=== PATIENT | female | born 1975 | race American Indian/Alaskan Native ===

== ENCOUNTER 2017-07-20 01:14 | Emergency (ER) | payer MEDICAID ==
[2017-07-20 01:29] VITALS: O2SAT 96
[2017-07-20] MEDS ORDERED: Sodium Chloride 0.9% 500 ML IV ONE (02:00)
--- NOTE | 2017-07-20 02:26 | C.PDOC ---
History Of Present Illness 41 year old female presents to the ER with a complaint of chronic abdominal pain for the past year. Patient has been mostly seen at [facility] where she states she had numerous x-rays and CT done, she notes she was given zofran PO for vomiting and tylenol for pain in May with no relief bc she's unable to keep pills down. Patient reports she still has persistent vomiting and pain; she has not followed up with PMD due to insurance issues. Denies fever, diarrhea, or recent travel. Time Seen by Provider: 07/20/17 01:46 Chief Complaint (Nursing): Chest Pain History Per: Patient History/Exam Limitations: no limitations Current Symptoms Are (Timing): Still Present Associated Symptoms: denies: Nausea, Dyspnea, Diaphoresis, Syncope Modifying Factors: None Exacerbating Factors: None Alleviating Factors: None Recent travel outside of the [place]: No Past Medical History Reviewed: Historical Data, Nursing Documentation, Vital Signs Vital Signs: Last Vital Signs Temp 98.1 F 07/20/17 01:25 Pulse 93 H 07/20/17 01:25 Resp 20 07/20/17 01:25 BP 147/87 07/20/17 01:25 Pulse Ox 96 07/20/17 04:34 - Medical History PMH: Asthma, HTN Surgical History: Cholecystectomy (x2) Family History: States: Unknown Family Hx - Social History Hx Alcohol Use: Yes Hx Substance Use: No - Immunization History Hx Tetanus Toxoid Vaccination: No Hx Influenza Vaccination: Yes Hx Pneumococcal Vaccination: No Review Of Systems Constitutional: Negative for: Fever, Chills Gastrointestinal: Positive for: Vomiting, Abdominal Pain. Negative for: Diarrhea Physical Exam - Physical Exam Appears: Non-toxic, No Acute Distress Skin: Normal Color, Warm, Dry Head: Atraumatic, Normacephalic Eye(s): bilateral: Normal Inspection Oral Mucosa: Moist Chest: Symmetrical Cardiovascular: Rhythm Regular Respiratory: Normal Breath Sounds, No Rales, No Rhonchi, No Wheezing Gastrointestinal/Abdominal: Bowel Sounds (Active), Soft, Tenderness (Epigastric) , No Guarding, No Rebound, Other (Obese) Neurological/Psych: Oriented x3, Normal Speech ED Course And Treatment - Laboratory Results Result Diagrams: 07/20/17 02:29 07/20/17 02:29 O2 Sat by Pulse Oximetry: 96 (Room air) Pulse Ox Interpretation: Normal Progress Note: Blood work and urinalysis ordered. Toradol IV, zofran IV, pepcid , and IV fluids administered. Pt reports pain still 6/10 so viscous lidocaine mix with maalox ordered. Reevaluation Time: 04:59 Reassessment Condition: Improved (Pt feels much better, tolerating PO in the ED . Pt will follow up with PMD for GI referral) Disposition Counseled Patient/Family Regarding: Diagnosis, Need For Followup, Rx Given - Disposition Disposition: HOME/ ROUTINE Disposition Time: 02:23 Condition: STABLE Additional Instructions: take zofran ODT Follow up with PMD or in clinic Have [place] diet Return to ER if worse Prescriptions: Ondansetron ODT [Zofran ODT] 1 odt PO BID PRN #6 odt PRN Reason: Nausea/Vomiting Instructions: Abdominal Pain (ED) Forms: [facility] (Tajik) - Clinical Impression Clinical Impression: Abdominal pain - Scribe Statement The provider has reviewed the documentation as recorded by the Scribe Umair Anne All medical record entries made by the Scribe were at my direction and personally dictated by me. I have reviewed the chart and agree that the record accurately reflects my personal performance of the history, physical exam, medical decision making, and the department course for this patient. I have also personally directed, reviewed, and agree with the discharge instructions and disposition.
[2017-07-20] MEDS ORDERED: Sodium Chloride 0.9% 1,000 ML ONE (02:27)
[2017-07-20 02:38] LABS: BASO # 0.1 K/uL (0.0-0.2); BASO % 0.5 % (0.0-2.0); EOS # 0.1 K/uL (0.0-0.7); EOS % 1.1 % (0.0-4.0); HEMATOCRIT 36.8 % (34.0-47.0); LYMPH # 2.7 K/uL (1.0-4.3); LYMPH % 25.4 % (20.0-40.0); MEAN CELL VOLUME 89.9 fL (81.0-99.0); MEAN CORPUSCULAR HEMOGLOBIN 28.9 pg (27.0-31.0); MEAN CORPUSCULAR HGB CONC 32.1 g/dL (33.0-37.0); MEAN PLATELET VOLUME 7.3 fL (7.2-11.7); MONO # 0.8 K/uL (0.0-0.8); MONO % 7.6 % (0.0-10.0); NRBC % 0.1 % (0.0-2.0); RED CELL DISTRIBUTION WIDTH 15.4 % (11.5-14.5); WHITE BLOOD COUNT 10.8 K/uL (4.8-10.8)
[2017-07-20 02:48] LABS: BILIRUBIN,TOTAL 0.8 mg/dL (0.2-1.3); CALCIUM 8.3 mg/dl (8.6-10.4); GFR AFRICAN-AMERICAN > 60; GLUCOSE,RANDOM 93 mg/dL (65-105); TOTAL PROTEIN 7.4 g/dL (6.3-8.3)
[2017-07-20 02:52] LABS: ALKALINE PHOSPHATASE 58 U/L (38-126); ALT/SGPT 29 U/L (9-52); AST/SGOT 25 U/L (14-36); BLOOD UREA NITROGEN 6 mg/dL (7-17); CARBON DIOXIDE 21 mmol/L (22-30); CHLORIDE 101 mmol/L (98-107); POTASSIUM 3.5 mmol/L (3.6-5.2); SODIUM 134 mmol/L (132-148)
[2017-07-20 03:30] LABS: RBC URINE 7 /hpf (0-3); URINE BACTERIA RARE (<OCC); URINE BILIRUBIN NEGATIVE (NEGATIVE); URINE BLOOD NEGATIVE (NEGATIVE); URINE COLOR Yellow (YELLOW); URINE GLUCOSE (UA) NORMAL (Normal); URINE KETONE TRACE mg/dL (NEGATIVE); URINE LEUKOCYTE ESTERASE TRACE Leu/uL (Negative); URINE PROTEIN NEGATIVE (NEGATIVE); URINE UROBILINOGEN NORMAL mg/dL (0.2-1.0); WBC URINE 4 /hpf (0-5)
[2017-07-20] MEDS ORDERED: Alum-Mag Hydrox-Simethicone Susp (30 mL) ONE (04:03)
[2017-07-20] MEDS ORDERED: Aluminum Hydroxide/Magnesium Hydroxide Susp (30 mL) PO STA (04:14)
[2017-07-20 04:57] VITALS: BP 115/70; PULSE 74; RESP 18; TEMP 98.3
[2017-07-20] MEDS ORDERED: Aluminum Hydroxide/Magnesium Hydroxide Susp (30 mL) PO SCH (10:00)
--- NOTE | 2017-07-21 21:53 | CARD ---
APPROVED REPORT EKG Measurement Heart [id number] CT [id number] <Conclusion> Normal sinus rhythm Possible Left atrial enlargement Left ventricular hypertrophy Prolonged QT Abnormal ECG
== END 2017-07-20 05:15 | disposition home or self-care (01) ==
LOC: C.ER 01:14
DX: R10.13 Epigastric pain (principal)
CPT/HCPCS: 80053; 81001; 83690; 84703; 85025; 93005; 96361; 96374; 96375; 99285; J1885; J2405; J7040

== ENCOUNTER 2018-04-06 09:59 | Emergency (ER) | payer MEDICAID ==
[2018-04-06 10:07] VITALS: TEMP 98.5
[2018-04-06 10:11] VITALS: BMI 36.1
[2018-04-06] MEDS ORDERED: Lidocaine 5% Patch TD STA (10:28)
--- NOTE | 2018-04-06 10:29 | C.PDOC ---
History Of Present Illness 42-year-old female presents to the ED complaining of left buttock/hip pain radiating down the posterior thigh, since yesterday. Patient denies recent trauma or fall. States she was watching TV in bed, got up to use the bathroom, and noticed the pain while walking. She tried taking 800mg Motrin, applying Bengay, and placing the thigh in an JIM bandage, without improvement. Patient is able to move her left toes but states she cannot bend the knee or walk. Of note, patient reports a history of two slipped discs in her back. Otherwise she denies any numbness, tingling, fever, chills, dysuria, urinary frequency, incontinence of bowel or bladder. Time Seen by Provider: 04/06/18 10:18 Chief Complaint (Nursing): Lower Extremity Problem/Injury History Per: Patient History/Exam Limitations: no limitations Onset/Duration Of Symptoms: Days Current Symptoms Are (Timing): Still Present Past Medical History Reviewed: Historical Data, Nursing Documentation, Vital Signs Vital Signs: Last Vital Signs Temp 98.5 F 04/06/18 10:04 Pulse 68 04/06/18 12:10 Resp 16 04/06/18 12:10 BP 148/89 04/06/18 12:10 Pulse Ox 100 04/06/18 12:43 - Medical History PMH: Asthma, Back Problems (2 slipped discs), HTN Surgical History: Cholecystectomy (x2) Family History: States: Unknown Family Hx - Social History Hx Alcohol Use: Yes Hx Substance Use: No - Immunization History Hx Tetanus Toxoid Vaccination: No Hx Influenza Vaccination: Yes Hx Pneumococcal Vaccination: No Review Of Systems Except As Marked, All Systems Reviewed And Found Negative. Constitutional: Negative for: Fever, Chills Genitourinary: Negative for: Dysuria, Frequency, Incontinence Musculoskeletal: Positive for: Leg Pain (left buttock radiating down the left posterior thigh) Skin: Negative for: Rash Neurological: Negative for: Numbness, Other (tingling) Physical Exam - Physical Exam Appears: Non-toxic, In Acute Distress (mild painful distress) Skin: Warm, Dry, No Rash Head: Atraumatic, Normacephalic Eye(s): bilateral: Normal Inspection Oral Mucosa: Moist Neck: Normal ROM Chest: Symmetrical Cardiovascular: Rhythm Regular, No Murmur Respiratory: Normal Breath Sounds, No Rales, No Rhonchi, No Wheezing Gastrointestinal/Abdominal: Soft, No Tenderness, No Distention Back: No CVA Tenderness, No Vertebral Tenderness, No Paraspinal Tenderness Extremity: Bilateral: Atraumatic (with no swelling or skin changes), Hips Non- Tender, Normal Color And Temperature, Other (Limited ROM secondary to pain) Pulses: Left Dorsalis Pedis: Normal, Right Dorsalis Pedis: Normal Neurological/Psych: Oriented x3, Normal Speech, Normal Sensation Gait: Unable To Assess ED Course And Treatment O2 Sat by Pulse Oximetry: 100 (room air) Pulse Ox Interpretation: Normal - Other Rad X-Ray Left Hip/Pelvis X-Ray: Viewed By Me, Read By Radiologist Interpretation: FINDINGS: BONES: Normal. No fracture. JOINTS: Normal. SOFT TISSUES: Normal. OTHER FINDINGS: None. IMPRESSION: Normal left hip radiographs. Medical Decision Making Medical Decision Making: Impression: Left posterior hip and upper leg pain Initial Plan: --Valium 5 mg PO --Toradol 60 mg IM --Lidoderm patch x1 --Left Hip/Pelvis X-Ray --Reassessment and disposition Progress/Updates: X-ray is negative, as read by radiology. Copy of report provided. Counseled patient regarding findings and likely diagnosis. 11:25am On re-examination, patient is still complaining of pain. Ordered 8 mg IM morphine. 12:35pm On re-examination, patient is resting comfortably in no acute distress. Patient reports improvement of symptoms. Patient feels comfortable going home and will be discharged. Patient given follow up instructions and prescriptions to take home. Instructed to return to ER if symptoms worsen or new symptoms arise. Disposition Counseled Patient/Family Regarding: Diagnosis, Need For Followup, Rx Given - Disposition Referrals: [facility] [Outside] [facility] [Outside] [facility] [Outside] Disposition: HOME/ ROUTINE Disposition Time: 12:37 Condition: STABLE Additional Instructions: Apply heat to area for 15-20 minutes at a time 2-3 times per day Take Motrin for pain every 6-8 hours as needed, with food to not upset stomach Take Flexeril for muscle pain and spasm every 6-8 hours as needed, caution can cause drowsiness Take percocet for more severe pain, be aware this is narcotic medication and can cause drowsiness; do not drink alcohol Follow up with your primary medical doctor or clinic in 2-5 days for further evaluation Return to the emergency department at any time if symptoms persist or worsen. Prescriptions: Cyclobenzaprine [Cyclobenzaprine HCl] 10 mg PO TID #30 tab Ibuprofen [Motrin] 600 mg PO Q8 #30 tab oxyCODONE/Acetaminophen [Percocet 5/325 mg Tab] 1 tab PO Q8 PRN #12 tab PRN Reason: Pain, Severe (8-10) Instructions: Radiculopathy (DC) Forms: [employer] (Turkish) - POA Present On Arrival: None - Clinical Impression Clinical Impression: Lumbar radiculopathy - PA / TIMBER SIZER / Resident Statement MD/DO has reviewed & agrees with the documentation as recorded. - Scribe Statement The provider has reviewed the documentation as recorded by the Scribe (Tana Pruitt) All medical record entries made by the Scribe were at my direction and personally dictated by me. I have reviewed the chart and agree that the record accurately reflects my personal performance of the history, physical exam, medical decision making, and the department course for this patient. I have also personally directed, reviewed, and agree with the discharge instructions and disposition.
[2018-04-06] MEDS ORDERED: Lidocaine 5% Patch TD ONE (10:50)
--- NOTE | 2018-04-06 11:00 | RAD ---
PROCEDURE: Left Hip X-ray Radiographs. HISTORY: Pain left hip, buttock, and side COMPARISON: None. FINDINGS: BONES: Normal. No fracture. JOINTS: Normal. SOFT TISSUES: Normal. OTHER FINDINGS: None. IMPRESSION: Normal left hip radiographs.
[2018-04-06] MEDS ORDERED: Morphine 4 MG/ML VIAL ONE (11:43)
[2018-04-06 12:10] VITALS: BP 148/89; RESP 16
[2018-04-06 12:43] VITALS: O2SAT 100
[2018-04-06 13:35] VITALS: PULSE 67
== END 2018-04-06 13:33 | disposition home or self-care (01) ==
LOC: C.ER 09:59
DX: M54.16 Radiculopathy, lumbar region (principal)
CPT/HCPCS: 73502; 96372; 99284; J1885; J2270